=== PATIENT | male | born 1965 | race Caucasian/White ===

== ENCOUNTER 2018-11-07 07:58 | Emergency (ER) | payer BC ==
[~2018-11-07] VITALS: Ht 167.6 cm; Wt 90.0 kg
[2018-11-07 08:00] VITALS: BP 159/74; PULSE 70; RESP 16; Ht 167.6 cm; Wt 90.0 kg
[2018-11-07] MEDS ORDERED: IBUPROFEN 800 MG TAB PO ONE (09:00)
[2018-11-07] MEDS ORDERED: NAPR-985 PO (09:56)
[2018-11-07] MEDS ORDERED: HYDR-4011 PO (09:56)
--- NOTE | 2018-11-07 10:20 | ERD ---
ER Documentation Chief Complaint Chief Complaint pt is bib family with c/o right ankle pain for few days HPI 52-year-old male presenting with pain to right ankle for a few days. She took T ylenol 7 hours prior to my evaluation. Denies any fevers. Denies any recent falls or traumatic injuries. Pain is worse with walking. Denies medical problems. NKDA. Surgical history denies. Social history denies ROS All systems reviewed and are negative except as per history of present illness. Medications Home Meds Active Scripts Hydrocodone/Acetaminophen ([place] 5-325 Tablet) 1 Each Tablet, 1 TAB PO Q6H PRN for PAIN, #7 TAB Prov:MIRA MEJIA PA-C 11/07/18 Naproxen* (Naprosyn*) 500 Mg Tablet, 500 MG PO BID PRN for PAIN AND/OR INFLAMMATION, #30 TAB Prov:MIRA MEJIA PA-C 11/07/18 Allergies Allergies: Coded Allergies: No Known Allergy (Unverified , 11/07/18) PMhx/Soc Medical and Surgical Hx: pt denies Medical Hx, pt denies Surgical Hx Hx Alcohol Use: Yes (occassional) Hx Substance Use: No Hx Tobacco Use: No FmHx Family History: No diabetes, No coronary disease, No other Physical Exam Vitals Vital Signs Date Temp Pulse Resp B/P (MAP) Pulse Ox O2 O2 Flow FiO2 Time Delivery Rate 11/07/18 98.1 70 16 159/74 99 08:00 (102) Physical Exam GENERAL: The patient is well-appearing, well-nourished, in no acute distress CHEST: Clear to auscultation bilaterally. There are no rales, wheezes or rhonchi. HEART: Regular rate and rhythm. No murmurs, clicks, rubs or gallops. EXTREMITIES: Palpation over the medial aspect of the right ankle inferior to the malleolus. No obvious deformity. No erythema. Normal strength with flexion and extension. NEUROLOGIC: Alert and oriented. Cranial nerves II through XII intact. Motor strength in all 4 extremities with 5 out of 5 strength. Sensation grossly intact. Normal speech and gait. SKIN: There is no apparent rash or petechiae. The skin is warm and dry. Results 24 hrs Current Medications Medications Dose Sig/Sarath Start Time Status Last (Trade) Ordered Route PRN Stop Time Admin Dose Reason Admin Ibuprofen 800 mg ONCE ONCE 11/07/18 DC 11/07/18 (Motrin) PO 09:00 08:48 11/07/18 09:01 Procedures/MDM DIAGNOSTIC IMAGING REPORT Patient: LENI ALBRIGHT : 1965 Age: 52 Sex: M MR #: [id number] DOS: 11/07/18 0840 Ordering MD: ROBERTA MEJIA PA-C Location: [facility] Room/Bed: PROCEDURE: XR right ankle. CLINICAL INDICATION: Ankle pain. TECHNIQUE: Three views of the ankle were obtained. COMPARISON: None. FINDINGS: There is no acute fracture or dislocation. Mild degenerative changes are seen at the ankle. Osseous structures are intact. There is mild soft tissue swelling of the ankle. IMPRESSION: 1. No acute osseous abnormality. ER Course: Kirt wrap given in ED MDM: 52-year-old male presenting with pain to right ankle. I have considered acute fracture dislocation however low suspicion given there is no recent history of injury and x-rays within normal limits. I have considered possible infectious etiology however have low suspicion as there is no erythema or abnormal findings noted to physical exam. I have low suspicion for gout as there is no erythema or warmth to the joint space. Patient is discharged with strict ER precautions and told to follow-up with primary care within 1-2 days for close evaluation. Patient is told if symptoms change or worsen to return immediately to the ER. All questions answered at discharge Departure Diagnosis: Primary Impression: Ankle pain Condition: Stable Patient Instructions: Contusion, Lower Extremity Referrals: [facility] YOU HAVE RECEIVED A MEDICAL SCREENING EXAM AND THE RESULTS INDICATE THAT YOU DO NOT HAVE A CONDITION THAT REQUIRES URGENT TREATMENT IN THE EMERGENCY DEPARTMENT. FURTHER EVALUATION AND TREATMENT OF YOUR CONDITION CAN WAIT UNTIL YOU ARE SEEN IN YOUR DOCTORS OFFICE WITHIN THE NEXT 1-2 DAYS. IT IS YOUR RESPONSIBILITY TO MAKE AN APPOINTMENT FOR FOLOW-UP CARE. IF YOU HAVE A PRIMARY DOCTOR --you should call your primary doctor and schedule an appointment IF YOU DO NOT HAVE A PRIMARY DOCTOR YOU CAN CALL OUR PHYSICIAN REFERRAL HOTLINE AT IF YOU CAN NOT AFFORD TO SEE A PHYSICIAN YOU CAN CHOSE FROM THE FOLLOWING [facility] [address] [facility]. [facility]818) [phone] [facility]. [facility] [address] [facility] [address] [facility]. [facility] [address] [facility]. [facility] [address] Additional Instructions: FOLLOW UP WITH YOUR PRIMARY CARE PHYSICIAN TOMORROW.Return to this facility if you are not improving as expected. MIRA MEJIA PA-C Nov 07, 2018 10:20
== END 2018-11-07 10:12 | disposition home or self-care (01) ==
LOC: FTE 07:58
DX: M25.571 Pain in right ankle and joints of right foot (principal)
CPT/HCPCS: 73610; Z7502; Z7610